=== PATIENT | male | born 2005 | race Caucasian/White ===

== ENCOUNTER 2024-07-07 04:16 | Emergency (ER) | payer MEDICAID, SELFPAY ==
[2024-07-07 04:21] VITALS: BP 131/64; PULSE 77; RESP 14; TEMP 36.3; O2SAT 97
--- NOTE | 2024-07-07 04:46 | ED_ITS ---
HPI - Wound/Laceration General Chief Complaint: Wound/Laceration Stated Complaint: left hand laceration Time Seen by Provider: 07/07/24 04:33 Source: patient Mode of arrival: ambulatory Limitations: no limitations History of Present Illness ED Provider: Dr. Dottie Gold HPI narrative: Patient comes to the emergency room complaining of a laceration to the dorsum of the hand above the thumb. Patient states that earlier today he was trying to move a mirror, fell and broke and caused a laceration. Related Data Allergies Allergy/AdvReac Type Severity Reaction Status Date / Time aripiprazole [From Abilify] Allergy Difficulty Verified 07/07/24 04:23 Breathing Review of Systems Review of Systems: Constitutional : No Weight loss, No Fever, No Chills, No Night Sweats, No Fatigue, No Malaise ENT/Mouth : No Hearing loss, No Ear Pain, No Nasal Congestion, No Sinus Pain, No Hoarseness, No sore throat, No Rhinorrhea, No Swallowing Difficulty Eyes: No Eye Pain, No Swelling, No Redness, No Foreign Body, No Discharge, No Vision Changes Cardiovascular : No Chest Pain, No SOB, No Dyspnea on Exertion, No Orthopnea, No Edema, No Palpitations Respiratory : No Cough, No Sputum, No Wheezing, No Smoke Exposure, No Dyspnea Gastrointestinal : No Nausea, No Vomiting, No Diarrhea, No Constipation, No abdominal Pain, No Hematochezia, No Melena Genitourinary : no irregular bleeding, No Dysuria, No Urinary Frequency, No Hematuria, No Urinary Incontinence, No Urgency, No Flank Pain, No Urinary Flow Changes, No Hesitancy Musculoskeletal : No joint pain, No Myalgias, No Joint Swelling Skin : Complaining of a laceration Neuro : No Weakness, No Numbness, No Paresthesias, No Loss of Consciousness, No Dizziness, No Headache Psych : No Anxiety/Panic, No Depression, No SI/HI/AH/VH, No Social Issues, Heme/Lymph: No Bruising, No Bleeding,No Lymphadenopathy Endocrine : No Polyuria, No Polydipsia, No Temperature Intolerance PMFSH Social History Social History Advance Directives: No Advance Directives Information Provided: No Do you have a plan to hurt others: No Plan Physical Exam Vital Signs: Vital Signs: Last Vital Signs Temp 97.4 F 07/07/24 04:21 Pulse 77 07/07/24 04:21 Resp 14 12/22/24 04:21 BP 131/64 07/07/24 04:21 Pulse Ox 97 07/07/24 04:21 O2 Del Method Room Air 07/07/24 04:21 BMI result Body Mass Index 20.0 Const: Other: Appearance: Alert. Oriented X3. No acute distress. Eyes: Pupils equal, round and reactive to light. ENT: Pharynx normal. Neck: Normal inspection. Neck supple. No lymph nodes noted. No crepitus CVS: Normal heart rate and rhythm. Pulses normal. Normal S1 and S2 Respiratory: No respiratory distress. Breath sounds normal. No Wheezing. No rales Abdomen: Soft and nontender. No rigidity. No distention. Skin: Skin warm and dry. Normal skin color. Normal skin turgor. Extremities: No lower extremity edema. No Lacerations. No Rash. On the dorsum of the left hand , proximal to the base of the thumb, patient has a 1 cm laceration. Neuro: Oriented X 3. No motor deficit. No sensory deficit. Moving all extremities. No slurred speech. CN 2 through 12 grossly intact Psych: calm, cooperative, normal affect Medical Decision Making Medical Decision Making MDM Narrative: I discussed with the patient that he would need stitches. Patient refused. Patient states that he only wants blue, he is afraid of needles. I discussed with the patient that we can put glue, We tried applying pressure to control the bleed but continues bleeding. Patient is still refusing stitches. We were able to apply some glue, very mild bleeding. It was discussed with the patient that if the wound reopens again and keeps bleeding, after some time, we will not be able to put stitches. Patient agrees with plan Discharge Plan Discharge Clinical Impression: Laceration Patient Disposition: Home, Self-Care Instructions: Laceration (ED), Skin Adhesive Care (ED) Print Language: [place]
[2024-07-07 04:56] VITALS: BP 131/64; PULSE 77; RESP 14; TEMP 36.3; O2SAT 97
== END 2024-07-07 04:57 | disposition home or self-care (01) ==
PROVIDERS: Emergency Provider Emergency Medicine; PCP Nurse Practitioner Pediatrics
DX: S61.412A Laceration without foreign body of left hand, initial encounter (principal); W25.XXXA Contact with sharp glass, initial encounter; Y93.89 Activity, other specified; Y92.89 Other specified places as the place of occurrence of the external cause; Y99.8 Other external cause status
CPT/HCPCS: 99282; 99283